=== PATIENT | male | born 1995 | race Two or more races ===

== ENCOUNTER 2022-03-28 12:15 | Emergency (ER) | payer OTHER ==
[~2022-03-28] VITALS: Ht 162.6 cm; Wt 59.0 kg
[2022-03-28 12:15] VITALS: BP 123/78
[2022-03-28] MEDS ORDERED: IBUP-1955 PO (14:25)
[2022-03-28] MEDS ORDERED: IBUPROFEN 600 MG TABLET PO ONE (14:30)
[2022-03-28] MEDS ORDERED: TDAP [DIPH/PERTUSSIS/TET] 0.5 ML VIAL IM ONE ×2 (14:30→15:22)
[2022-03-28] MEDS ORDERED: IBUPROFEN 600 MG TABLET ONE (15:22)
== END 2022-03-28 15:35 ==
LOC: ER 12:21
DX: S01.01XA Laceration without foreign body of scalp, initial encounter (principal); M25.532 Pain in left wrist; R51.9 Headache, unspecified; Z88.0 Allergy status to penicillin; V99.XXXA Unspecified transport accident, initial encounter; Y93.89 Activity, other specified; Y92.89 Other specified places as the place of occurrence of the external cause; Y99.8 Other external cause status
CPT/HCPCS: 70450-TC; 73110; 90715